=== PATIENT | male | born 1950 | race Caucasian/White ===

== ENCOUNTER 2016-03-25 12:26 | Emergency (ER) ==
[2016-03-25 12:41] VITALS: BP 114/75; TEMP 97.6; BMI 29.0
[2016-03-25 12:52] LABS: BASOPHILS # (AUTO) 0.1 K/uL (0-0.2); BASOPHILS % (AUTO) 0.6 % (0.0-3.0); EOSINOPHILS # (AUTO) 0.1 K/ul (0.0-0.7); EOSINOPHILS % (AUTO) 0.5 % (0.0-7.0); HEMATOCRIT 43.4 % (42.0-52.0); HEMOGLOBIN 14.4 g/dl (14.0-18.0); IMMATURE GRANULOCYTE % (AUTO) 0.2 % (0.0-5.0); LYMPHOCYTES # (AUTO) 4.6 K/uL (0.60-3.4); LYMPHOCYTES % (AUTO) 38.2 (10.0-50.0); MEAN CORPUSCULAR HEMOGLOBIN 28.2 pg (27.0-31.0); MEAN CORPUSCULAR HGB CONC 33.2 (31.8-35.4); MEAN CORPUSCULAR VOLUME 85.1 fl (80.0-94.0); MONOCYTES # (AUTO) 0.5 K/uL (0.4-2.0); MONOCYTES % (AUTO) 3.8 (0-10); NEUTROPHILS # (AUTO) 6.8 K/ul (2.0-6.9); NEUTROPHILS % (AUTO) 56.7; PLATELET COUNT 221 10^3/uL (140-440); WHITE BLOOD COUNT 12.01 K/ul (4.2-10.2)
--- NOTE | 2016-03-25 13:04 | DI ---
EXAM: Chest two views HISTORY: Cough COMPARISON: None TECHNIQUE: Two views of the chest were performed FINDINGS: The lungs are clear. There is no pleural effusion or pneumothorax. The heart is normal in size. The mediastinal contour is normal. There are no acute abnormalities of the bones. IMPRESSION: No acute cardiopulmonary process.
[2016-03-25 13:09] LABS: FLU INTERNAL QC INTERNAL QC VALID; RAPID FLU A NEGATIVE (NEGATIVE); RAPID FLU B NEGATIVE (NEGATIVE)
[2016-03-25 13:12] LABS: ALBUMIN/GLOBULIN RATIO 1.29; BILIRUBIN,TOTAL 0.52 mg/dL (0.00-1.20); BUN/CREATININE RATIO 15.78; CALCIUM 9.7 mg/dL (8.2-10.2); CREATININE 1.14 mg/dL (0.60-1.10); TOTAL PROTEIN 7.1 g/dL (5.8-8.1)
--- NOTE | 2016-03-25 13:27 | ED.PDOC ---
General ED Provider: Dr. TED ODELL Chief Complaint: Sore Throat Stated Complaint: Patient comes to the Er with symtoms of "not feeling well" past 3 days, He had cough and then developed sore throat, but denies any fever. Time Seen by Physician: 12:40 Mode of Arrival: Walk-In Information Source: Patient Exam Limitations: No limitations Primary Care Provider: IFEANYI JAMES Nursing and Triage Documentation Reviewed and Agree: Yes EENT Complaint Exam - Throat Complaint/Exam Onset/Duration: 2 days Symptoms Are: Still present Timimg: Constant Initial Severity: Mild Current Severity: Moderate Aggravating: Reports: Eating Alleviating: Reports: Antipyretics Associated Signs and Symptoms: Reports: Dysphagia, Cough Related History: Reports: Similar Episode Uvula Midline: No Carlita-tonsillar Fluctuence: No Scarlatinaform Rash Present: No Stridor Present: No Sinus Tenderness Present: No Tonsillar Hypertrophy Present: No Tonsillar Exudate Present: No Carlita-tonsillar Swelling Present: No Adenopathy Present: No Splenomegaly Present: No Differential Diagnoses: Pharyngitis, URI Review of Systems - Review Of Systems Constitutional: Denies: Fever Eyes: Reports: No symptoms Ears, Nose, Mouth, Throat: Reports: Throat pain Respiratory: Reports: Cough Cardiac: Reports: No symptoms GI: Reports: No symptoms : Reports: No symptoms Musculoskeletal: Reports: No symptoms Skin: Reports: No symptoms Neurological: Reports: No symptoms Endocrine: Reports: No symptoms Hematologic/Lymphatic: Reports: No symptoms All Other Systems: Reviewed and Negative Past Medical History - Past Medical History Previously Healthy: No Endocrine: Reports: DM 2 Cardiovascular: Reports: Hypertension Respiratory: Reports: None Hematological: Reports: None Gastrointestinal: Reports: None Genitourinary: Reports: None Neuro/Psych: Reports: None Musculoskeletal: Reports: None Cancer: Reports: None - Surgical History General Surgical History: Reports: Unknown - Family History Family History: Reports: Unknown - Social History Smoking Status: Never smoker Hx Substance Use: No Alcohol Screening: None Physical Exam - Physical Exam Appearance: Ill-appearing Ill-appearing: Mild Eyes: ROBBIE, EOMI, Conjunctiva clear ENT: Ears normal, Nose normal, Oropharynx normal Neck: Supple Respiratory: Airway patent, Breath sounds clear, Breath sounds equal, Respirations nonlabored Cardiovascular: RRR, Pulses normal, No rub, No murmur Skin: Warm, Dry Neurological: Sensation intact, Motor intact Psychiatric: Anxious Critical Care Note - Critical Care Note Total Time (mins): 0 Course - Course Hematology/Chemistry: 03/25/16 12:45 03/25/16 12:45 Orders, Labs, Meds: Lab Review 03/25/16 12:45 WBC 12.01 H RBC 5.10 Hgb 14.4 Hct 43.4 MCV 85.1 MCH 28.2 MCHC 33.2 RDW Coeff of Marcella 12.1 Plt Count 221 Immature Gran % (Auto) 0.2 Neut % (Auto) 56.7 Lymph % (Auto) 38.2 Boyle % (Auto) 3.8 Eos % (Auto) 0.5 Baso % (Auto) 0.6 Immature Gran # (Auto) 0.0 Neut # 6.8 Lymph # 4.6 H Boyle # 0.5 Eos # 0.1 Baso # 0.1 Sodium 138 Potassium 4.0 Chloride 102 Carbon Dioxide 26 Anion Gap 14.0 BUN 18 Creatinine 1.14 H Estimated GFR (MDRD) 65.00 BUN/Creatinine Ratio 15.78 Glucose 232 H Calcium 9.7 Total Bilirubin 0.52 AST 30 ALT 50 Alkaline Phosphatase 115 Total Protein 7.1 Albumin 4.0 Globulin 3.1 Albumin/Globulin Ratio 1.29 Influenza A (Rapid) Negative Influenza B (Rapid) Negative Orders Category Date Time Status CBC W/ AUTO DIFF Stat LAB 03/25/16 12:45 Completed CMP [COMPREHENSIVE METABOLIC PANEL] Stat LAB 03/25/16 12:45 Completed MOLECULAR GROUP A STREP Stat LAB 03/25/16 12:45 Results RAPID FLU A/B Stat LAB 03/25/16 12:45 Completed STREP SCREEN Stat LAB 03/25/16 12:45 Results CHEST, 2 VIEWS PA & LAT Stat RADS 03/25/16 12:37 Completed Vital Signs: Temp Pulse Resp BP Pulse Ox 03/25/16 12:27 97.6 F 102 H 20 114/75 96 Departure - Departure Time of Disposition: 13:26 Disposition: HOME SELF-CARE Discharge Problem: Sore throat symptom, Viral URI with cough Instructions: Viral Syndrome (ED), Pharyngitis (ED) Condition: Good Pt referred to PMD for follow-up: Yes Additional Instructions: Follow up with PCP in 3 days Push Fluids Take over the counter Tylenol or Motrin as needed for pain Allergies/Adverse Reactions: Allergies No Known Allergies Allergy (Verified 03/25/16 12:33) Home Medications: Ambulatory Orders Fenofibrate 54 mg PO DAILY 09/07/15 Hydrochlorothiazide 12.5 mg PO DAILY 09/07/15 Insulin Glargine,Hum.rec.anlog [Lantus] 45 units SUBCUT DAILY 09/07/15 Linagliptin [Tradjenta] 1 tab PO DAILY 09/07/15 Losartan Potassium 100 mg PO DAILY 09/07/15 Metformin HCl [Glucophage] 850 mg PO DAILY 09/07/15 Paroxetine HCl 20 mg PO DAILY 09/07/15 Cetirizine HCl/Pseudoephedrine [Zyrtec-D Tablet] 1 each PO BID #30 tab.er.12h Disposition Discussed With: Patient
== END 2016-03-25 13:32 | disposition home or self-care (01) ==
LOC: ED 12:26
DX: J06.9 Acute upper respiratory infection, unspecified (principal); J02.9 Acute pharyngitis, unspecified; E11.9 Type 2 diabetes mellitus without complications
CPT/HCPCS: 36415; 80053; 85025; 87651; 87804; 87880; 99282

== ENCOUNTER 2016-04-10 11:30 | Outpatient (CLI) ==
[2016-04-10 11:54] LABS: BASOPHILS # (AUTO) 0.1 K/uL (0-0.2); BASOPHILS % (AUTO) 0.7 % (0.0-3.0); EOSINOPHILS # (AUTO) 0.1 K/ul (0.0-0.7); EOSINOPHILS % (AUTO) 1.4 % (0.0-7.0); HEMATOCRIT 42.8 % (42.0-52.0); HEMOGLOBIN 14.1 g/dl (14.0-18.0); IMMATURE GRANULOCYTE % (AUTO) 0.3 % (0.0-5.0); LYMPHOCYTES # (AUTO) 5.6 K/uL (0.60-3.4); LYMPHOCYTES % (AUTO) 57.8 (10.0-50.0); MEAN CORPUSCULAR HGB CONC 32.9 (31.8-35.4); MEAN CORPUSCULAR VOLUME 84.9 fl (80.0-94.0); MONOCYTES # (AUTO) 0.5 K/uL (0.4-2.0); MONOCYTES % (AUTO) 5.2 (0-10); NEUTROPHILS # (AUTO) 3.3 K/ul (2.0-6.9); NEUTROPHILS % (AUTO) 34.6; PLATELET COUNT 178 10^3/uL (140-440); RED BLOOD COUNT 5.04 10^6/ul (4.70-6.10); WHITE BLOOD COUNT 9.62 K/ul (4.2-10.2)
[2016-04-10 12:19] LABS: ALBUMIN/GLOBULIN RATIO 1.29; BILIRUBIN,TOTAL 0.56 mg/dL (0.00-1.20); BUN/CREATININE RATIO 17.54; CALCIUM 9.9 mg/dL (8.2-10.2); CHOL/HDL RATIO 5.5 (4.5-6.4); CREATININE 1.14 mg/dL (0.60-1.10); TOTAL PROTEIN 7.1 g/dL (5.8-8.1)
== END 2016-04-10 11:31 | disposition home or self-care (01) ==
LOC: LAB 11:30
PROVIDERS: ATTEND Family Medicine
DX: I10 Essential (primary) hypertension (principal); E11.9 Type 2 diabetes mellitus without complications; E78.5 Hyperlipidemia, unspecified
CPT/HCPCS: 36415; 80053; 80061; 83036; 85025

== ENCOUNTER 2016-06-05 09:46 | Outpatient (CLI) ==
[2016-06-05 10:04] LABS: BASOPHILS # (AUTO) 0.1 K/uL (0-0.2); BASOPHILS % (AUTO) 0.8 % (0.0-3.0); EOSINOPHILS # (AUTO) 0.2 K/ul (0.0-0.7); EOSINOPHILS % (AUTO) 1.5 % (0.0-7.0); HEMATOCRIT 41.8 % (42.0-52.0); HEMOGLOBIN 14.6 g/dl (14.0-18.0); IMMATURE GRANULOCYTE % (AUTO) 0.6 % (0.0-5.0); LYMPHOCYTES # (AUTO) 5.4 K/uL (0.60-3.4); LYMPHOCYTES % (AUTO) 52.7 (10.0-50.0); MEAN CORPUSCULAR HEMOGLOBIN 28.9 pg (27.0-31.0); MEAN CORPUSCULAR HGB CONC 34.9 (31.8-35.4); MEAN CORPUSCULAR VOLUME 82.6 fl (80.0-94.0); MONOCYTES # (AUTO) 0.6 K/uL (0.4-2.0); NEUTROPHILS # (AUTO) 3.9 K/ul (2.0-6.9); NEUTROPHILS % (AUTO) 38.4; PLATELET COUNT 198 10^3/uL (140-440); RED BLOOD COUNT 5.06 10^6/ul (4.70-6.10); WHITE BLOOD COUNT 10.19 K/ul (4.2-10.2)
[2016-06-05 10:09] LABS: BILIRUBIN,URINE Negative (NEGATIVE); KETONES,URINE Negative (NEGATIVE); LEUKOCYTE ESTERASE ,URINE Negative (NEGATIVE); NITRITE,URINE Negative (NEGATIVE); PROTEIN,URINE Negative (NEGATIVE); URINE, BLOOD Negative (NEGATIVE)
[2016-06-05 10:12] LABS: ADD URINE MICROSCOPIC YES
[2016-06-05 10:22] LABS: ALBUMIN/GLOBULIN RATIO 1.18; ANION GAP 12.1; BILIRUBIN,TOTAL 0.46 mg/dL (0.00-1.20); BUN/CREATININE RATIO 22.8; CHOL/HDL RATIO 5.2 (4.5-6.4); CREATININE 1.14 mg/dL (0.60-1.10); POTASSIUM 4.1 mmol/L (3.5-5.1); TOTAL PROTEIN 7.4 g/dL (5.8-8.1)
== END 2016-06-05 09:47 | disposition home or self-care (01) ==
LOC: LAB 09:46
PROVIDERS: ATTEND Family Medicine
DX: I10 Essential (primary) hypertension (principal); E78.5 Hyperlipidemia, unspecified; E11.9 Type 2 diabetes mellitus without complications
CPT/HCPCS: 36415; 80053; 80061; 81001; 83036; 85025

== ENCOUNTER 2016-06-08 07:52 | Outpatient (CLI) ==
[2016-06-08 08:29] LABS: BILIRUBIN,URINE Negative (NEGATIVE); KETONES,URINE Negative (NEGATIVE); LEUKOCYTE ESTERASE ,URINE Negative (NEGATIVE); NITRITE,URINE Negative (NEGATIVE); PH,URINE 5.5 (5-9); PROTEIN,URINE Negative (NEGATIVE); URINE, BLOOD Negative (NEGATIVE)
[2016-06-08 08:31] LABS: ADD URINE MICROSCOPIC NO
[2016-06-08 08:52] LABS: ALBUMIN 3.9 g/dL (3.4-5.0); ALBUMIN/GLOBULIN RATIO 1.18; ANION GAP 12.1; BILIRUBIN,TOTAL 0.49 mg/dL (0.00-1.20); BUN/CREATININE RATIO 22.12; CALCIUM 9.6 mg/dL (8.2-10.2); CREATININE 1.13 mg/dL (0.60-1.10); POTASSIUM 4.1 mmol/L (3.5-5.1); TOTAL PROTEIN 7.2 g/dL (5.8-8.1)
== END 2016-06-08 07:53 | disposition home or self-care (01) ==
LOC: LAB 07:52
PROVIDERS: ATTEND Family Medicine
DX: E11.9 Type 2 diabetes mellitus without complications (principal)
CPT/HCPCS: 36415; 80053; 81001

== ENCOUNTER 2016-06-20 08:22 | Outpatient (CLI) ==
[2016-06-20 09:02] LABS: ALBUMIN 3.9 g/dL (3.4-5.0); ALBUMIN/GLOBULIN RATIO 1.34; ANION GAP 12.1; BILIRUBIN,TOTAL 0.43 mg/dL (0.00-1.20); BUN/CREATININE RATIO 24.32; CALCIUM 9.8 mg/dL (8.2-10.2); CREATININE 1.11 mg/dL (0.60-1.10); POTASSIUM 4.1 mmol/L (3.5-5.1); TOTAL PROTEIN 6.8 g/dL (5.8-8.1)
== END 2016-06-20 08:23 | disposition home or self-care (01) ==
LOC: LAB 08:22
PROVIDERS: ATTEND Family Medicine
DX: E11.9 Type 2 diabetes mellitus without complications (principal)
CPT/HCPCS: 36415; 80053

== ENCOUNTER 2016-07-19 08:26 | Outpatient (CLI) ==
[2016-07-19 08:45] LABS: BASOPHILS # (AUTO) 0.1 K/uL (0-0.2); BASOPHILS % (AUTO) 0.8 % (0.0-3.0); EOSINOPHILS # (AUTO) 0.1 K/ul (0.0-0.7); EOSINOPHILS % (AUTO) 1.6 % (0.0-7.0); HEMATOCRIT 41.2 % (42.0-52.0); HEMOGLOBIN 14.2 g/dl (14.0-18.0); IMMATURE GRANULOCYTE % (AUTO) 0.5 % (0.0-5.0); LYMPHOCYTES # (AUTO) 4.5 K/uL (0.60-3.4); LYMPHOCYTES % (AUTO) 57.3 (10.0-50.0); MEAN CORPUSCULAR HEMOGLOBIN 28.8 pg (27.0-31.0); MEAN CORPUSCULAR HGB CONC 34.5 (31.8-35.4); MEAN CORPUSCULAR VOLUME 83.6 fl (80.0-94.0); MONOCYTES # (AUTO) 0.5 K/uL (0.4-2.0); MONOCYTES % (AUTO) 5.7 (0-10); NEUTROPHILS # (AUTO) 2.7 K/ul (2.0-6.9); NEUTROPHILS % (AUTO) 34.1; PLATELET COUNT 173 10^3/uL (140-440); RED BLOOD COUNT 4.93 10^6/ul (4.70-6.10); WHITE BLOOD COUNT 7.89 K/ul (4.2-10.2)
[2016-07-19 08:48] LABS: BILIRUBIN,URINE Negative (NEGATIVE); KETONES,URINE Negative (NEGATIVE); LEUKOCYTE ESTERASE ,URINE Negative (NEGATIVE); NITRITE,URINE Negative (NEGATIVE); PH,URINE 5.5 (5-9); PROTEIN,URINE Negative (NEGATIVE); URINE, BLOOD Negative (NEGATIVE)
[2016-07-19 08:50] LABS: ADD URINE MICROSCOPIC NO
[2016-07-19 09:13] LABS: ALBUMIN 3.9 g/dL (3.4-5.0); ALBUMIN/GLOBULIN RATIO 1.26; ANION GAP 11.9; BILIRUBIN,TOTAL 0.4 mg/dL (0.00-1.20); BUN/CREATININE RATIO 24.13; CALCIUM 9.3 mg/dL (8.2-10.2); CHOL/HDL RATIO 5.9 (4.5-6.4); CREATININE 1.16 mg/dL (0.60-1.10); POTASSIUM 3.9 mmol/L (3.5-5.1)
== END 2016-07-19 08:27 | disposition home or self-care (01) ==
LOC: LAB 08:26
PROVIDERS: ATTEND Family Medicine
DX: E11.9 Type 2 diabetes mellitus without complications (principal); I10 Essential (primary) hypertension; E78.5 Hyperlipidemia, unspecified; F41.1 Generalized anxiety disorder; Z79.899 Other long term (current) drug therapy
CPT/HCPCS: 36415; 80053; 80061; 81001; 83036; 85025

== ENCOUNTER 2016-10-20 08:27 | Outpatient (CLI) ==
[2016-10-20 08:44] LABS: BASOPHILS # (AUTO) 0.1 K/uL (0-0.2); BASOPHILS % (AUTO) 0.6 % (0.0-3.0); EOSINOPHILS # (AUTO) 0.2 K/ul (0.0-0.7); HEMATOCRIT 38.9 % (42.0-52.0); HEMOGLOBIN 13.5 g/dl (14.0-18.0); IMMATURE GRANULOCYTE % (AUTO) 0.3 % (0.0-5.0); LYMPHOCYTES # (AUTO) 5.3 K/uL (0.60-3.4); LYMPHOCYTES % (AUTO) 53.2 (10.0-50.0); MEAN CORPUSCULAR HEMOGLOBIN 28.9 pg (27.0-31.0); MEAN CORPUSCULAR HGB CONC 34.7 (31.8-35.4); MEAN CORPUSCULAR VOLUME 83.3 fl (80.0-94.0); MONOCYTES # (AUTO) 0.6 K/uL (0.4-2.0); NEUTROPHILS # (AUTO) 3.8 K/ul (2.0-6.9); NEUTROPHILS % (AUTO) 37.9; PLATELET COUNT 173 10^3/uL (140-440); RED BLOOD COUNT 4.67 10^6/ul (4.70-6.10); WHITE BLOOD COUNT 9.89 K/ul (4.2-10.2)
[2016-10-20 08:48] LABS: BILIRUBIN,URINE Negative (NEGATIVE); KETONES,URINE Negative (NEGATIVE); LEUKOCYTE ESTERASE ,URINE Negative (NEGATIVE); NITRITE,URINE Negative (NEGATIVE); PROTEIN,URINE Negative (NEGATIVE); URINE, BLOOD Negative (NEGATIVE)
[2016-10-20 08:54] LABS: ADD URINE MICROSCOPIC NO
[2016-10-20 09:19] LABS: ALBUMIN 3.8 g/dL (3.4-5.0); ALBUMIN/GLOBULIN RATIO 1.15; ANION GAP 14.1; BILIRUBIN,TOTAL 0.37 mg/dL (0.00-1.20); BUN/CREATININE RATIO 19.81; CALCIUM 10.1 mg/dL (8.2-10.2); CHOL/HDL RATIO 4.5 (4.5-6.4); CREATININE 1.06 mg/dL (0.60-1.10); POTASSIUM 4.1 mmol/L (3.5-5.1); TOTAL PROTEIN 7.1 g/dL (5.8-8.1)
== END 2016-10-20 08:28 | disposition home or self-care (01) ==
LOC: LAB 08:27
PROVIDERS: ATTEND Family Medicine
DX: I10 Essential (primary) hypertension (principal); E78.5 Hyperlipidemia, unspecified; E11.9 Type 2 diabetes mellitus without complications; F41.1 Generalized anxiety disorder; Z79.899 Other long term (current) drug therapy
CPT/HCPCS: 36415; 80053; 80061; 81001; 83036; 85025

== ENCOUNTER 2016-11-09 08:37 | Outpatient (CLI) ==
[2016-11-09 09:01] LABS: BASOPHILS # (AUTO) 0.1 K/uL (0-0.2); BASOPHILS % (AUTO) 0.8 % (0.0-3.0); EOSINOPHILS # (AUTO) 0.2 K/ul (0.0-0.7); EOSINOPHILS % (AUTO) 2.6 % (0.0-7.0); HEMATOCRIT 38.7 % (42.0-52.0); HEMOGLOBIN 13.8 g/dl (14.0-18.0); IMMATURE GRANULOCYTE % (AUTO) 0.2 % (0.0-5.0); LYMPHOCYTES # (AUTO) 4.7 K/uL (0.60-3.4); LYMPHOCYTES % (AUTO) 55.5 (10.0-50.0); MEAN CORPUSCULAR HEMOGLOBIN 29.6 pg (27.0-31.0); MEAN CORPUSCULAR HGB CONC 35.7 (31.8-35.4); MEAN CORPUSCULAR VOLUME 82.9 fl (80.0-94.0); MONOCYTES # (AUTO) 0.5 K/uL (0.4-2.0); MONOCYTES % (AUTO) 6.3 (0-10); NEUTROPHILS # (AUTO) 2.9 K/ul (2.0-6.9); NEUTROPHILS % (AUTO) 34.6; PLATELET COUNT 165 10^3/uL (140-440); RED BLOOD COUNT 4.67 10^6/ul (4.70-6.10); WHITE BLOOD COUNT 8.44 K/ul (4.2-10.2)
[2016-11-09 09:19] LABS: ALBUMIN 3.7 g/dL (3.4-5.0); ALBUMIN/GLOBULIN RATIO 1.23; ANION GAP 12.1; BILIRUBIN,TOTAL 0.54 mg/dL (0.00-1.20); BUN/CREATININE RATIO 20.95; CALCIUM 10.3 mg/dL (8.2-10.2); CHOL/HDL RATIO 4.4 (4.5-6.4); CREATININE 1.05 mg/dL (0.60-1.10); POTASSIUM 4.1 mmol/L (3.5-5.1); TOTAL PROTEIN 6.7 g/dL (5.8-8.1)
[2016-11-09 09:21] LABS: ADD URINE MICROSCOPIC NO; BILIRUBIN,URINE Negative (NEGATIVE); KETONES,URINE Negative (NEGATIVE); LEUKOCYTE ESTERASE ,URINE Negative (NEGATIVE); NITRITE,URINE Negative (NEGATIVE); PH,URINE 5.5 (5-9); PROTEIN,URINE Negative (NEGATIVE); URINE, BLOOD Negative (NEGATIVE)
== END 2016-11-09 08:38 | disposition home or self-care (01) ==
LOC: LAB 08:37
PROVIDERS: ATTEND Family Medicine
DX: E11.9 Type 2 diabetes mellitus without complications (principal); E78.5 Hyperlipidemia, unspecified; I10 Essential (primary) hypertension; F41.1 Generalized anxiety disorder; Z79.899 Other long term (current) drug therapy
CPT/HCPCS: 36415; 80053; 80061; 81001; 83036; 85025

== ENCOUNTER 2016-12-11 08:24 | Outpatient (CLI) ==
[2016-12-11 08:44] LABS: BASOPHILS # (AUTO) 0.1 K/uL (0-0.2); EOSINOPHILS # (AUTO) 0.2 K/ul (0.0-0.7); EOSINOPHILS % (AUTO) 2.3 % (0.0-7.0); HEMATOCRIT 41.2 % (42.0-52.0); HEMOGLOBIN 14.5 g/dl (14.0-18.0); IMMATURE GRANULOCYTE % (AUTO) 0.4 % (0.0-5.0); LYMPHOCYTES # (AUTO) 4.6 K/uL (0.60-3.4); LYMPHOCYTES % (AUTO) 55.6 (10.0-50.0); MEAN CORPUSCULAR HEMOGLOBIN 28.9 pg (27.0-31.0); MEAN CORPUSCULAR HGB CONC 35.2 (31.8-35.4); MEAN CORPUSCULAR VOLUME 82.2 fl (80.0-94.0); MONOCYTES # (AUTO) 0.6 K/uL (0.4-2.0); MONOCYTES % (AUTO) 6.7 (0-10); NEUTROPHILS # (AUTO) 2.8 K/ul (2.0-6.9); PLATELET COUNT 173 10^3/uL (140-440); RED BLOOD COUNT 5.01 10^6/ul (4.70-6.10)
[2016-12-11 09:01] LABS: ALBUMIN 3.8 g/dL (3.4-5.0); ALBUMIN/GLOBULIN RATIO 1.09; BILIRUBIN,TOTAL 0.65 mg/dL (0.00-1.20); BUN/CREATININE RATIO 17.47; CALCIUM 10.2 mg/dL (8.2-10.2); CHOL/HDL RATIO 4.9 (4.5-6.4); CREATININE 1.03 mg/dL (0.60-1.10); TOTAL PROTEIN 7.3 g/dL (5.8-8.1)
[2016-12-11 09:04] LABS: BILIRUBIN,URINE Negative (NEGATIVE); KETONES,URINE Negative (NEGATIVE); LEUKOCYTE ESTERASE ,URINE Negative (NEGATIVE); NITRITE,URINE Negative (NEGATIVE); PROTEIN,URINE Negative (NEGATIVE); URINE, BLOOD Negative (NEGATIVE)
[2016-12-11 09:05] LABS: ADD URINE MICROSCOPIC NO
== END 2016-12-11 08:25 | disposition home or self-care (01) ==
LOC: LAB 08:24
PROVIDERS: ATTEND Family Medicine
DX: E78.5 Hyperlipidemia, unspecified (principal); I10 Essential (primary) hypertension; E11.9 Type 2 diabetes mellitus without complications; Z79.899 Other long term (current) drug therapy
CPT/HCPCS: 36415; 80053; 80061; 81001; 83036; 85025

== ENCOUNTER 2017-02-19 08:27 | Outpatient (CLI) ==
[2017-02-19 09:09] LABS: BASOPHILS # (AUTO) 0.1 K/uL (0-0.2); BASOPHILS % (AUTO) 0.7 % (0.0-3.0); EOSINOPHILS # (AUTO) 0.2 K/ul (0.0-0.7); EOSINOPHILS % (AUTO) 1.7 % (0.0-7.0); HEMATOCRIT 42.6 % (42.0-52.0); HEMOGLOBIN 14.6 g/dl (14.0-18.0); IMMATURE GRANULOCYTE % (AUTO) 0.3 % (0.0-5.0); LYMPHOCYTES # (AUTO) 4.8 K/uL (0.60-3.4); LYMPHOCYTES % (AUTO) 49.1 (10.0-50.0); MEAN CORPUSCULAR HEMOGLOBIN 28.8 pg (27.0-31.0); MEAN CORPUSCULAR HGB CONC 34.3 (31.8-35.4); MONOCYTES # (AUTO) 0.5 K/uL (0.4-2.0); MONOCYTES % (AUTO) 5.5 (0-10); NEUTROPHILS # (AUTO) 4.2 K/ul (2.0-6.9); NEUTROPHILS % (AUTO) 42.7; PLATELET COUNT 188 10^3/uL (140-440); RED BLOOD COUNT 5.07 10^6/ul (4.70-6.10); WHITE BLOOD COUNT 9.82 K/ul (4.2-10.2)
[2017-02-19 09:14] LABS: BILIRUBIN,URINE Negative (NEGATIVE); KETONES,URINE Negative (NEGATIVE); LEUKOCYTE ESTERASE ,URINE Negative (NEGATIVE); NITRITE,URINE Negative (NEGATIVE); PH,URINE 6.5 (5-9); PROTEIN,URINE Negative (NEGATIVE); URINE, BLOOD Negative (NEGATIVE)
[2017-02-19 09:15] LABS: ADD URINE MICROSCOPIC NO
[2017-02-19 09:31] LABS: ALBUMIN 3.9 g/dL (3.4-5.0); ALBUMIN/GLOBULIN RATIO 1.11; ANION GAP 13.2; BILIRUBIN,TOTAL 0.45 mg/dL (0.00-1.20); BUN/CREATININE RATIO 16.66; CALCIUM 10.6 mg/dL (8.2-10.2); CHOL/HDL RATIO 5.9 (4.5-6.4); CREATININE 1.08 mg/dL (0.60-1.10); POTASSIUM 4.2 mmol/L (3.5-5.1); TOTAL PROTEIN 7.4 g/dL (5.8-8.1)
== END 2017-02-19 08:28 | disposition home or self-care (01) ==
LOC: LAB 08:27
PROVIDERS: ATTEND Family Medicine
DX: E78.5 Hyperlipidemia, unspecified (principal); I10 Essential (primary) hypertension; E11.9 Type 2 diabetes mellitus without complications; Z79.899 Other long term (current) drug therapy
CPT/HCPCS: 36415; 80053; 80061; 81001; 83036; 85025

== ENCOUNTER 2017-04-18 08:08 | Outpatient (CLI) | END 2017-04-18 08:09 | disposition home or self-care (01) | LOC: CAR 08:08 → LAB 08:09 | PROVIDERS: ATTEND Family Medicine | DX: E11.9 Type 2 diabetes mellitus without complications (principal); E78.5 Hyperlipidemia, unspecified; I10 Essential (primary) hypertension; Z79.899 Other long term (current) drug therapy | CPT/HCPCS: 36415; 80053; 80061; 81001; 83036; 85025 ==

== ENCOUNTER 2017-06-04 08:53 | Outpatient (CLI) | END 2017-06-04 08:54 | disposition home or self-care (01) | LOC: LAB 08:53 | PROVIDERS: ATTEND Family Medicine | DX: E78.5 Hyperlipidemia, unspecified (principal); E11.9 Type 2 diabetes mellitus without complications; I10 Essential (primary) hypertension; Z79.899 Other long term (current) drug therapy | CPT/HCPCS: 36415; 80053; 80061; 81001; 83036; 85025 ==

== ENCOUNTER 2017-08-29 08:16 | Outpatient (CLI) | END 2017-08-29 08:17 | disposition home or self-care (01) | LOC: LAB 08:16 | PROVIDERS: ATTEND Family Medicine | DX: E78.5 Hyperlipidemia, unspecified (principal); I10 Essential (primary) hypertension; I67.89 Other cerebrovascular disease; E11.9 Type 2 diabetes mellitus without complications; Z79.899 Other long term (current) drug therapy | CPT/HCPCS: 36415; 80053; 80061; 81001; 83036; 85025 ==

== ENCOUNTER 2017-11-08 14:08 | Emergency (ER) ==
[2017-11-08 14:16] VITALS: BP 132/89; TEMP 98.1
--- NOTE | 2017-11-08 15:34 | DI ---
EXAM: Three views of the right foot. History: Right heel pain and trauma. Findings: No acute fracture or dislocation. No abnormal calcifications or radiopaque foreign bodies . Joint spaces are preserved. Impression: No acute osseous abnormality
--- NOTE | 2017-11-08 15:49 | ED.PDOC ---
General ED Provider: Dr. LUIS MANUEL CANDELARIO Chief Complaint: Foot Pain/Injury Stated Complaint: right foot pain Time Seen by Physician: 14:30 (no injury) Mode of Arrival: Walk-In Information Source: Patient Exam Limitations: No limitations Primary Care Provider: IFEANYI JAMES Nursing and Triage Documentation Reviewed and Agree: Yes Does patient meet sepsis criteria?: No System Inflammatory Response Syndrome: Not Applicable Sepsis Protocol: For patient's 13 years and over: Temp is 96.8 and below OR 101 and greater Pulse >90 BPM Resp >20/minute Acutely Altered Mental Status Are patient's symptoms suggestive of a new infection, such as: -Pneumonia -Skin, Soft Tissue -Endocarditis -UTI -Bone, Joint Infection -Implantable Device -Acute Abdominal Infection -Wound Infection -Meningitis -Blood Stream Catheter Infection -Unknown Musculoskeletal Complaint Exam - Ankle/Foot Complaint/Exam Location of Injury: Reports: Right, Foot Mechanism of Injury: Reports: No known trauma, Other (pain in the heel) Onset/Duration: 1 week Symptoms Are: Reports: Still present Onset of Pain: Reports: Days Initial Severity: Mild Current Severity: Mild Location: Reports: Discrete Character: Reports: Aching Alleviating: Reports: Rest Aggravating: Reports: Movement Able to Bear Weight: Yes Associated Signs and Symptoms: Denies: Swelling, Redness, Bruising, Fever, Weakness, Numbness, Tingling Related History: Reports: Similar episode Gout Risk Factors: Reports: >40 years old Related Surgical History: Reports: None Lower Extremity Findings: Absent: Swelling, Ecchymosis, Abnormal contour, Rotation, Ligamentous instability, Erythema Tenderness: Present: Midfoot, Metatarsals, Digits Differential Diagnosis: Closed Fracture Review of Systems - Review Of Systems Constitutional: Reports: No symptoms Eyes: Reports: No symptoms Ears, Nose, Mouth, Throat: Reports: No symptoms Respiratory: Reports: No symptoms Cardiac: Reports: No symptoms GI: Reports: No symptoms : Reports: No symptoms Musculoskeletal: Reports: Joint pain (right foot) Skin: Reports: No symptoms Neurological: Reports: No symptoms Endocrine: Reports: No symptoms Hematologic/Lymphatic: Reports: No symptoms All Other Systems: Reviewed and Negative Past Medical History - Past Medical History Previously Healthy: No Endocrine: Reports: DM 2 Cardiovascular: Reports: Hypertension Respiratory: Reports: None Hematological: Reports: None Gastrointestinal: Reports: None Genitourinary: Reports: None Neuro/Psych: Reports: None Musculoskeletal: Reports: None Cancer: Reports: None - Surgical History General Surgical History: Reports: Unknown - Family History Family History: Reports: Unknown - Social History Smoking Status: Never smoker Hx Substance Use: No Alcohol Screening: None - Immunizations Tetanus Shot up to Date: No Physical Exam - Physical Exam Appearance: Well-appearing, No pain distress, Well-nourished Eyes: ROBBIE, EOMI, Conjunctiva clear ENT: Ears normal, Nose normal, Oropharynx normal Respiratory: Airway patent, Breath sounds clear, Breath sounds equal, Respirations nonlabored Cardiovascular: RRR, Pulses normal, No rub, No murmur GI/: Soft, Nontender, No masses, Bowel sounds normal, No Organomegaly Musculoskeletal: Normal strength, ROM intact, No edema, No calf tenderness Skin: Warm, Dry, Normal color Neurological: Sensation intact, Motor intact, Reflexes intact, Cranial nerves intact, Alert, Oriented Psychiatric: Affect appropriate, Mood appropriate Interpretation - Radiology Interpretation Radiology Interpretation By: Radiologist Radiology Results: No acute changes Critical Care Note - Critical Care Note Total Time (mins): 0 Course - Course Orders, Labs, Meds: Orders Category Date Time Status FOOT, RIGHT 3 VIEWS Stat RADS 11/08/17 14:44 Completed Vital Signs: Temp Pulse Resp BP Pulse Ox 11/08/17 14:13 98.1 F 91 H 18 132/89 98 Departure - Departure Time of Disposition: 15:49 Disposition: HOME SELF-CARE Discharge Problem: Foot pain, right Instructions: Foot Sprain (ED) Condition: Good Pt referred to PMD for follow-up: Yes IPMP verified?: No Additional Instructions: Please call your Family Physician as soon as possible to schedule a follow-up appointment. Allergies/Adverse Reactions: Allergies No Known Allergies Allergy (Verified 11/08/17 14:16) Home Medications: Ambulatory Orders Fenofibrate 54 mg PO DAILY 09/07/15 Hydrochlorothiazide 12.5 mg PO DAILY 09/07/15 Insulin Glargine,Hum.rec.anlog [Lantus] 45 units SUBCUT DAILY 09/07/15 Linagliptin [Tradjenta] 1 tab PO DAILY 09/07/15 Losartan Potassium 100 mg PO DAILY 09/07/15 Metformin HCl [Glucophage] 850 mg PO DAILY 09/07/15 Paroxetine HCl 20 mg PO DAILY 09/07/15 Cetirizine HCl/Pseudoephedrine [Zyrtec-D Tablet] 1 each PO BID #30 tab.er.12h Disposition Discussed With: Patient
== END 2017-11-08 16:12 | disposition home or self-care (01) ==
LOC: ED 14:08
DX: M79.671 Pain in right foot (principal)
CPT/HCPCS: 99283

== ENCOUNTER 2017-11-13 08:48 | Outpatient (CLI) ==
[2017-11-08 14:13] VITALS: BMI 29.0
== END 2017-11-13 08:49 | disposition home or self-care (01) ==
LOC: LAB 08:48
PROVIDERS: ATTEND Family Medicine
DX: E78.5 Hyperlipidemia, unspecified (principal); E11.9 Type 2 diabetes mellitus without complications; F41.1 Generalized anxiety disorder; Z79.899 Other long term (current) drug therapy
CPT/HCPCS: 36415; 80053; 80061; 81001; 83036; 85025

== ENCOUNTER 2018-09-15 10:54 | Emergency (ER) ==
[2018-09-15 10:58] VITALS: BP 168/87; TEMP 98.2; BMI 31.7
--- NOTE | 2018-09-15 11:19 | ED.PDOC ---
Medical Screening Exam - General Information Time Seen by Physician*: 11:15 Mode of Arrival: Walk-In Information Source: Patient - History Chief Complaint: Medication Refill Stated Complaint: home care consultant says they are low on meds, h/o DD Severity: None - Review Of Systems Constitutional: None CV: Reports: None Respiratory: Reports: None GI: Reports: None : Reports: None Musculoskeletal: Reports: None Neuro: Reports: None - Examination Findings Visit Related to : No - Medical Decision Making Emergency Medical Condition: No Physical Exam - Physical Exam Appearance: Obese Eyes: ROBBIE, EOMI, Conjunctiva clear ENT: Ears normal, Nose normal, Oropharynx normal Respiratory: Airway patent, Breath sounds clear, Breath sounds equal, Respirations nonlabored Cardiovascular: RRR, Pulses normal, No rub, No murmur GI/: Soft, Nontender, No masses, Bowel sounds normal, No Organomegaly Musculoskeletal: Normal strength, ROM intact, No edema, No calf tenderness Skin: Warm, Dry, Normal color Neurological: Sensation intact, Motor intact, Reflexes intact, Cranial nerves intact, Alert, Oriented Psychiatric: Affect appropriate, Mood appropriate Critical Care Note - Critical Care Note Total Time (mins): 0 Course - Course Vital Signs: Temp Pulse Resp BP Pulse Ox 09/15/18 10:55 98.2 F 96 H 16 168/87 H 97 Departure - Departure Time of Disposition: 11:20 Disposition: HOME SELF-CARE Discharge Problem: Encounter for medical screening examination Condition: Good Pt referred to PMD for follow-up: Yes IPMP verified?: No Additional Instructions: call their PCP tomorrow for any temporay meds or refill Allergies/Adverse Reactions: Allergies No Known Allergies Allergy (Verified 09/15/18 11:08) Home Medications: Ambulatory Orders Fenofibrate 54 mg PO DAILY 09/07/15 Hydrochlorothiazide 12.5 mg PO DAILY 09/07/15 Losartan Potassium 100 mg PO DAILY 09/07/15 Metformin HCl [Glucophage] 1,000 mg PO DAILY 09/07/15 Paroxetine HCl 20 mg PO DAILY 09/07/15 Amlodipine Besylate [Norvasc] 5 mg PO DAILY 09/15/18 Atorvastatin Calcium [Lipitor] 20 mg PO BEDTIME 09/15/18 Insulin Glargine,Hum.rec.anlog [Basaglar Kwikpen U-100] 9 unit SQ BEDTIME Pioglitazone HCl [Actos] 30 mg PO DAILY 09/15/18
== END 2018-09-15 11:29 | disposition home or self-care (01) ==
LOC: ED 10:54
DX: Z76.0 Encounter for issue of repeat prescription (principal); Z00.00 Encounter for general adult medical examination without abnormal findings
CPT/HCPCS: 99281